=== PATIENT | male | born 1955 ===

== ENCOUNTER 2018-12-14 10:14 | Inpatient (IN) | payer OTHER ==
[~2018-12-14] VITALS: Ht 180.3 cm; Wt 90.7 kg
[2018-12-18] MEDS ORDERED: COZAAR50 MG PO (12:42)
[2018-12-21] MEDS ORDERED: INTESTINEX680 M1 PO (08:33)
[2018-12-21] MEDS ORDERED: OXYC1TAB9 PO (08:33)
== END 2018-12-21 12:02 | disposition home or self-care (01) | DRG 346 ==
LOC: SURG 12-18 08:30 → SURH 12-20 06:05 → O/R 12-20 06:05 → SURG 12-20 08:30 → SURH 12-20 14:11 → SURG 12-20 15:45 → SURH 12-21 12:02
PROVIDERS: ADMIT Surgery
PROC: 3E0T3BZ Introduction of Anesthetic Agent into Peripheral Nerves and Plexi, Percutaneous Approach (ICD-10-PCS; 2018-12-20)
PROC: 0DBP0ZX Excision of Rectum, Open Approach, Diagnostic (ICD-10-PCS; principal; 2018-12-20 15:45)
DX: D12.8 Benign neoplasm of rectum (principal); I10 Essential (primary) hypertension